=== PATIENT | female | born 1945 | race Caucasian/White ===

== ENCOUNTER → 2019-06-01 | Outpatient (CLI) | payer OTHER ==
[~2019-06-01] MED LIST: AMLO10 PO; ASPI81EC PO; CALCIUM 600MG PO; CEPH500 PO; LOSHYD PO; METO25ER PO; METO50ER PO; MULVITMIND PO
== END | disposition home or self-care (01) ==
LOC: PLD 10:54 → LAB SHORT 10:54
DX: D22.62 Melanocytic nevi of left upper limb, including shoulder (principal)
CPT/HCPCS: 88305; 88342

== ENCOUNTER → 2019-07-01 | Outpatient (CLI) | payer OTHER | END | disposition home or self-care (01) | LOC: PLD 14:01 → LAB SHORT 14:01 | DX: D48.5 Neoplasm of uncertain behavior of skin (principal) | CPT/HCPCS: 88305 ==

== ENCOUNTER → 2020-07-11 | Outpatient (CLI) | payer OTHER | END | disposition home or self-care (01) | LOC: LAB SHORT 11:31 → PLD 11:31 | DX: D22.71 Melanocytic nevi of right lower limb, including hip (principal) | CPT/HCPCS: 88305 ==

== ENCOUNTER 2022-12-04 07:34 | Day surgery (SDC) | payer OTHER ==
[~2022-12-04] VITALS: Ht 167.6 cm; Wt 74.0 kg
[~2022-12-04 07:34] MED LIST changes: +CYCL10 PO; +ERGO400 PO; +HYDR1TAB94 PO; +LOSA25 PO; +MAGNESIUM OXID500 MG PO; +PRED20 PO
[2022-12-04] MEDS ORDERED: SYNTHROID PO (07:54)
--- NOTE | 2022-12-04 08:01 | NUR ---
12/04/22 0801 DRU COYLE PT IN ROOM RIGHT NOW. PT ATTEMPTED TO LIE DOWN AND PT STARTED HAVING VERTIGO. PT NAUSEATED. IN ROOM AT THIS TIME ASSESSING PT. WILL CONTINUE TO MONITOR.
== END 2022-12-04 08:25 | disposition home or self-care (01) ==
LOC: ORSCSDS 07:34
DX: H25.11 Age-related nuclear cataract, right eye (principal); Z53.9 Procedure and treatment not carried out, unspecified reason
CPT/HCPCS: A9270; J2001; J2250; J2405; J3010; J7040

== ENCOUNTER 2023-02-26 07:12 | Day surgery (SDC) | payer OTHER ==
[~2023-02-26] VITALS: Ht 167.6 cm; Wt 72.7 kg
[~2023-02-26 07:12] MED LIST changes: +SYNTHROID PO
--- NOTE | 2023-02-26 07:39 | NUR ---
02/26/23 0739 Roslyn Corbett TETRACAINE TO RIGHT EYE @ 0735 PLEDGET TO RIGHT EYE @ 0736 BY [facility].ECTOR
[2023-02-26 09:39] VITALS: BP 182/78
--- NOTE | 2023-02-26 09:49 | NUR ---
02/26/23 0949 Shell Gomes IV DISCONTINUED, SITE ASSESSMENT COMPLETE AND SITE WNL
== END 2023-02-26 09:52 | disposition home or self-care (01) ==
LOC: ORSCSDS 07:12
PROVIDERS: Student in an Organized Health Care Education/Training Program
PROC: 08DJ3ZZ Extraction of Right Lens, Percutaneous Approach (ICD-10-PCS; principal; 2023-02-26 08:30)
DX: H25.13 Age-related nuclear cataract, bilateral (principal); I10 Essential (primary) hypertension; I48.91 Unspecified atrial fibrillation; I25.10 Atherosclerotic heart disease of native coronary artery without angina pectoris; Z79.82 Long term (current) use of aspirin; Z79.899 Other long term (current) drug therapy
CPT/HCPCS: J1100; J2250; J2405; J3010; J7040; V2632

== ENCOUNTER 2023-04-02 09:37 | Day surgery (SDC) | payer OTHER ==
[~2023-04-02] VITALS: Ht 167.6 cm; Wt 71.1 kg
[2023-04-02] MEDS ORDERED: MECL25 PO (10:18)
--- NOTE | 2023-04-02 11:02 | NUR ---
04/02/[address] [facility] TO ASSIST WITH GETTING INTO POSITION WITHOUT CAUSING VERTIGO. DEDRARN AND DR BANDA IN TO ASSIST WITH POSITIONING. 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 3 LEAD OBTAINED AND SHOWED TO DR BHATTI. PATIENT REPORTS NO SYMPTOMS.
[2023-04-02 11:26] VITALS: BP 163/74
--- NOTE | 2023-04-02 11:35 | NUR ---
04/02/23 1135 Toyin Anderson PT WITH SEVERE VERTIGO. SLOW MOVEMENTS WHEN GETTING PATIENT UP FROM BED TO HELP MINIMIZE VERTIGO.
== END 2023-04-02 11:58 | disposition home or self-care (01) ==
LOC: ORSCSDS 09:37
PROVIDERS: Student in an Organized Health Care Education/Training Program
PROC: 08DK3ZZ Extraction of Left Lens, Percutaneous Approach (ICD-10-PCS; principal; 2023-04-02 11:00)
DX: H25.12 Age-related nuclear cataract, left eye (principal); Z96.1 Presence of intraocular lens; I10 Essential (primary) hypertension; I48.91 Unspecified atrial fibrillation; I25.10 Atherosclerotic heart disease of native coronary artery without angina pectoris; Z79.82 Long term (current) use of aspirin; Z79.899 Other long term (current) drug therapy
CPT/HCPCS: J1100; J2250; J2405; J2765; J3010; J7040; V2632